=== PATIENT | male | born 1960 | race Caucasian/White ===

== ENCOUNTER 2021-04-09 14:37 | Emergency (ER) | payer BC, SELFPAY ==
[2021-04-09] VITALS (35 sets, daily range): BP systolic 130–159; BP diastolic 79–136; PULSE 90–121; RESP 13–25; TEMP 36.6–36.9; O2SAT 85–99
--- NOTE | ~2021-04-09 | XR_ITS ---
XR chest 1V portable DATE: 04/09/2021 15:20 INDICATION: Midsternal chest pain today TECHNIQUE: Portable AP chest COMPARISON: 02/12/2018 PA chest FINDINGS: Monitor device overlies the lower left chest. Normal heart size. No hilar or mediastinal enlargement. No pulmonary infiltrate or consolidation, ple ural effusion or pulmonary vascular congestion or pneumothorax. Included skeletal structures are unremarkable. IMPRESSION: No active cardiopulmonary disease Reviewed, dictated and finalized at location A.
--- NOTE | 2021-04-09 14:45 | ECG_ITS ---
Measurements Intervals [place] Rate: 93 P: 40 IL: 147 QRS: -13 QRSD: 113 T: 24 QT: 384 QTc: 479 Interpretive Statements SINUS RHYTHM WITH SINUS ARRHYTHMIA INCOMPLETE RIGHT BUNDLE BRANCH BLOCK VOLTAGE CRITERIA FOR LVH BORDERLINE ST-T WAVE ABNORMALITY- ANTEROLAT/INF LEADS BORDERLINE ECG Electronically Signed On 04-10-2021 8:47:00 CDT by Inocente Russell D.O.
[2021-04-09] MEDS: diphenhydrAMINE HCl INJ 50 MG/ML VIAL IV PUSH (14:50)
[2021-04-09] MEDS: FAMOTIDINE 20 MG/2 ML VIAL IV PUSH (14:51)
[2021-04-09] MEDS: methylPREDNISolone SOD SUCC 125 MG VIAL IV PUSH (14:51)
[2021-04-09] MEDS: EPINEPHrine HCL INJ 1 MG/ML AMPUL 0.3 MG IM (14:52)
--- NOTE | 2021-04-09 15:05 | ED.ALLEREA ---
HPI - Allergic Reaction General Chief complaint: Allergic Reaction Stated complaint: allgeric reaction Time Seen by Provider: 04/09/21 14:44 Source: patient and RN notes reviewed Mode of arrival: ambulatory Limitations: no limitations History of Present Illness HPI narrative: This is a 61 year old male with history of hypertension, TIA , hyperlipidemia who presents for evaluation of possible allergic reaction. He developed facial swelling and mouth swelling 1 hour ago. His symptoms have gradually worsened. He develop chest pain and shortness of breath. He denies itching. He denies any known allergies to medical or food. He ate crab dip at 11 am this morning. He took ibuprofen at 1 pm. He denies taking BALJIT I. He states he got new dental placed 12 days ago . He had initial swelling day of surgery but his swelling had resolved. He denies any mouth or gum itching. He has invisiligns in that are not new. Related Data Allergies Allergy/AdvReac Type Severity Reaction Status Date / Time No Known Allergies Allergy Verified 04/09/21 15:02 Review of Systems Review of Systems: All systems reviewed & are unremarkable except as noted in HPI and below PMFSH Past Medical History Medical History (Updated 04/09/21 @ 18:29 by Raven Melendez MD) Hyperlipidemia Hypertension TIA (transient ischemic attack) Social History Social History (Updated 04/09/21 @ 15:17 by Raven Melendez MD) Smoking status: Never smoker Alcohol intake: current Substance use: never Exam Const: General: no acute distress and alert Orientation/consciousness: patient oriented x3 HENMT: Head: normocephalic and atraumatic Ears: TM's normal bilaterally Face and sinus: face symmetric Mouth: Yes lip normal and Yes other (edema to floor of tongue) Throat: tonsils normal and uvula midline Eyes: Pupils: Equal, round and reactive pupils present EOM: EOMs intact bilaterally Resp: Effort & Inspection: normal respiratory effort and no retractions Auscultation: clear to auscultation bilaterally Cardio: Rate: regular rate Rhythm: regular rhythm Heart sounds: no murmurs GI: GI Palp: Yes Soft to palpation, No Tenderness to palpation present (GI) and No Guarding due to palpation present (GI) Auscultation: normal bowel sounds Neuro: General: patient oriented x3, moves all extremities and CN's II-XI intact bilaterally Extrem: General: normal to inspection Psych: Affect: normal affect Attitude: cooperative Course Reevaluation(s) Reevaluation #1: On reassessment, his edema has completely resolved. He has no complaints. He was able to drink without pain or difficulty. He has not had return of chest pain troponin negative. He understands discharge treatment and plan. He understands he will need to return immediately if his swelling returns. Date: 04/09/21 Time: 18:25 Vital Signs Vital signs: Vital Signs Temperature 97.8 F 04/09/21 14:42 Pulse Rate 93 04/09/21 14:42 Respiratory Rate 14 04/09/21 14:42 Blood Pressure 143/95 H 04/09/21 14:42 Pulse Oximetry 97 04/09/21 14:42 Temperature 98.4 F 04/09/21 18:32 Pulse Rate 105 H 04/09/21 18:33 Respiratory Rate 23 H 04/09/21 18:33 Blood Pressure 131/79 04/09/21 18:33 Pulse Oximetry 96 04/09/21 18:33 MDM - Allergic Reaction Lab Data Attestation: I reviewed the patient's lab results. Result diagrams: 04/09/21 14:59 04/09/21 14:59 Labs: Lab Results 04/09/21 04/09/21 04/09/21 Range/Units 14:59 14:59 17:41 WBC 4.3 L (4.5-10.0) K/mm3 RBC 4.89 (4.6-6.20) M/mm3 Hgb 15.5 (14.0-18.0) g/dL Hct 44.0 (42.0-52.0) % MCV 90.0 (80-100) fl MCH 31.7 (26-34) pg MCHC 35.2 (32-36) g/dl RDW 12.2 (11.5-14.5) % Plt Count 227 (150-375) k/mm3 MPV 10.6 H (7.4-10.4) fl Immature Gran % (Auto) 0.5 (0-0.5) % Neut % (Auto) 86.1 H (45.5-73.1) % Lymph % (Auto) 12.2 L (18.3-44.2)
[2021-04-09 15:27] LABS: Basophils Percent Auto 0.5 % (0.2-1.2); Eosinophils Percent Auto 0.5 % (0-4.4); Hemoglobin 15.5 g/dL (14.0-18.0); Immature Granulocyte Absolute 0.02 K/mm3 (0.00-0.031); Immature Granulocyte Percent A 0.5 % (0-0.5); Lymphocytes Absolute Auto 0.53 K/mm3 (0.9-3.2); Lymphocytes Percent Auto 12.2 % (18.3-44.2); Mean Corpuscular HGB Conc 35.2 g/dl (32-36); Mean Corpuscular Hemoglobin 31.7 pg (26-34); Mean Platelet Volume 10.6 fl (7.4-10.4); Monocytes Percent Auto 0.2 % (2.6-8.5); Neutrophils Absolute Auto 3.7 K/mm3 (1.3-6.7); Neutrophils Percent Auto 86.1 % (45.5-73.1); Platelet Count Result 227 k/mm3 (150-375); Red Blood Count 4.89 M/mm3 (4.6-6.20); Red Cell Distribution Width 12.2 % (11.5-14.5); White Blood Count 4.3 K/mm3 (4.5-10.0)
[2021-04-09 15:32] LABS: Prothrombin Time 12.8 Seconds (11.1-14.7)
[2021-04-09 15:33] LABS: Partial Thromboplastin Time 21.6 SECONDS (22.3-36.8)
[2021-04-09 15:57] LABS: Anion Gap 8 mmol/L (8-16); Blood Urea Nitrogen 25 mg/dL (9-20); Calcium 9.9 mg/dL (8.4-10.2); Carbon Dioxide 29 mmol/L (22-30); Chloride 104 mmol/L (98-107); Estimated CRCL calculation 72 ml/min; Estimated Glomerular Filt Rate > 60; Glucose 134 mg/dL (65-110); Potassium 3.6 mmol/L (3.4-5.0); Sodium 141 mmol/L (137-145)
[2021-04-09 16:00] LABS: Atypical Lymphocytes Present; Platelet Estimate Adequate (Adequate)
[2021-04-09 16:09] LABS: Troponin I < 0.012 ng/mL (0.000-0.034)
--- NOTE | 2021-04-09 16:19 | PC.NURSE ---
Pt drinking water. Swelling in face has decreased. Pt denies throat tightness when swallowing
[2021-04-09 18:12] LABS: Troponin I < 0.012 ng/mL (0.000-0.034)
--- NOTE | 2021-04-09 18:33 | PC.NURSE ---
Facial swelling has completely subsided.
== END 2021-04-09 18:51 | disposition home or self-care (01) ==
PROVIDERS: Emergency Provider General Practice; PCP Family Medicine
DX: T78.3XXA Angioneurotic edema, initial encounter (principal); R07.9 Chest pain, unspecified; Z86.73 Personal history of transient ischemic attack (TIA), and cerebral infarction without residual deficits; I10 Essential (primary) hypertension; E78.5 Hyperlipidemia, unspecified
CPT/HCPCS: 36415; 71045; 80048; 84484; 85025; 85610; 85730; 93005; 96372; 96374; 96375; 99284; J0171; J1200; J2930